=== PATIENT | female | born 1940 | race Caucasian/White ===

== ENCOUNTER 2023-06-15 09:40 | Emergency (ER) | payer MEDICARE ==
[2023-06-15 10:43] LABS: #Basophils 0.1 thou/uL (0.0-0.2); #Lymphocytes 0.4 thou/uL (1.20-3.40); #Monocytes 0.5 thou/uL (0.11-0.59); #Neutrophils 8.9 thou/uL (1.40-6.50); %Basophils 0.8 % (0.0-1.0); %Eosinophils 0.1 % (0.0-10.0); %Lymphocytes 4.2 % (21.0-51.0); %Monocytes 5.2 % (0.0-10.0); %Neutrophils 89.7 % (42.0-75.0); Hematocrit 42.7 % (36.0-47.0); Hemoglobin 14.1 g/dL (12.0-16.0); Mean Corpuscular HGB CONC 33.1 g/dL (32.0-36.0); Mean Corpuscular Hemoglobin 31.1 pg (27.0-31.0); Mean Corpuscular Volume 93.9 fl (78.0-98.0); Mean Platelet Volume 8.1 fL (7.4-10.4); Platelet Count 217 10x3/uL (130-400); RBC Distribution Width 12.2 % (11.5-14.5); Red Blood Cell (RBC) Count 4.55 mill/uL (4.20-5.40)
[2023-06-15] MEDS ORDERED: Ondansetron PF 4 MG/2 ML Vial ONE (10:43)
[2023-06-15] MEDS ORDERED: Sodium Chloride 0.9% 1,000 ML ONE ×2 (10:44→12:48)
[2023-06-15 10:52] LABS: ALT (SGPT) 25 U/L (8-55); AST (SGOT) 25 U/L (5-34); Albumin 4.8 g/dL (3.4-4.8); Alkaline Phosphatase 85 U/L (40-110); Anion Gap 19 mmol/L (10-20); BUN (Urea Nitrogen) 39 mg/dL (9.8-20.1); Bilirubin, Total 0.8 mg/dL (0.2-1.2); Calc. Creatinine Clearance 0 mL/min (70-130); Calcium 9.1 mg/dL (7.8-10.44); Carbon Dioxide 19 mmol/L (23-31); Chloride 106 mmol/L (98-107); Estimated GFR 20; Globulin 2.8 g/dL (2.4-3.5); Glucose 116 mg/dL (83-110); Lipase 16 U/L (8-78); Potassium 3.8 mmol/L (3.5-5.1); Protein, Total 7.6 g/dL (5.8-8.1); Sodium 140 mmol/L (136-145); Troponin I Less than 0.010 ng/mL (< 0.028)
[2023-06-15 12:18] LABS: Bilirubin Negative (Negative); Blood, Urine Trace (Negative); Clarity Slightly Cloudy (Clear); Glucose, Urine (Dipstick) Negative (Negative); Ketone, Urine Negative (Negative); Leukocyte Moderate (Negative); Nitrite Negative (Negative); Protein, Urine (Dipstick) 30 mg/dL (Neg-Trace); RBC/HPF 0-3 HPF (0-3); Specific Gravity, Urine 1.018 (1.002-1.036); Urobilinogen 0.2 mg/dL (Less than 2); pH, Urine 5.5 (5.0-9.0)
[2023-06-15 12:19] LABS: Bacteria/HPF 2+ HPF (None Seen); CAUTI Indications for Culture Dysuria,urgency,freq; WBC/HPF Greater than 50 HPF (0-3)
[2023-06-15 12:20] LABS: Urine Culture Reflex Yes Yes
[2023-06-15] MEDS ORDERED: cefTRIAXone (ROCEPHIN) 1 GM VIAL ONE (12:31)
== END 2023-06-15 15:48 | disposition short-term general hospital (02) ==
LOC: MADERS 09:40
DX: E86.0 Dehydration (principal); N39.0 Urinary tract infection, site not specified; N28.9 Disorder of kidney and ureter, unspecified
CPT/HCPCS: 71045; 74018; 74176; 80053; 81001; 83605; 83690; 84484; 85025; 87077; 87086; 93005; 96361; 96374; 96375; J0696; J2405; J7050

== ENCOUNTER 2024-08-14 19:53 | Emergency (ER) | payer MEDICARE ==
[2024-08-14] MEDS ORDERED: fentaNYL 50 mcg/mL 1 mL Vial ONE (20:32)
[2024-08-14 20:35] LABS: #Basophils 0.1 thou/uL (0.0-0.2); #Lymphocytes 0.8 thou/uL (1.20-3.40); #Monocytes 0.5 thou/uL (0.11-0.59); #Neutrophils 5.9 thou/uL (1.40-6.50); %Basophils 0.7 % (0.0-1.0); %Eosinophils 0.4 % (0.0-10.0); %Lymphocytes 11.2 % (21.0-51.0); %Monocytes 6.8 % (0.0-10.0); Hematocrit 41.3 % (36.0-47.0); Hemoglobin 13.2 g/dL (12.0-16.0); Mean Corpuscular HGB CONC 31.9 g/dL (32.0-36.0); Mean Corpuscular Hemoglobin 29.9 pg (27.0-31.0); Mean Corpuscular Volume 93.9 fl (78.0-98.0); Mean Platelet Volume 7.4 fL (7.4-10.4); Platelet Count 230 10x3/uL (130-400); RBC Distribution Width 12.1 % (11.5-14.5); White Blood Cell (WBC) Count 7.3 10x3/uL (4.8-10.8)
[2024-08-14 20:47] LABS: PTT 29.6 sec (22.9-36.1); Prothrombin Time 13.1 sec (12.0-14.7)
[2024-08-14 20:57] LABS: Troponin I Less than 0.010 ng/mL (< 0.028)
[2024-08-14 20:59] LABS: ALT (SGPT) 23 U/L (Less than 34); AST (SGOT) 27 U/L (11-34); Albumin 4.2 g/dL (3.1-4.5); Alkaline Phosphatase 89 U/L (40-110); Anion Gap 17 mmol/L (10-20); BUN (Urea Nitrogen) 27 mg/dL (9.8-20.1); Bilirubin, Total 0.4 mg/dL (0.3-1.2); Calc. Creatinine Clearance 0 mL/min (70-130); Calcium 9.3 mg/dL (7.8-10.44); Carbon Dioxide 19 mmol/L (23-31); Chloride 107 mmol/L (98-107); Estimated GFR 89; Globulin 3.2 g/dL (2.4-3.5); Glucose 116 mg/dL (83-110); Potassium 4.6 mmol/L (3.5-5.1); Protein, Total 7.4 g/dL (5.8-8.1); Sodium 138 mmol/L (136-145)
== END 2024-08-14 23:50 | disposition short-term general hospital (02) ==
LOC: MADERS 19:53
DX: S72.141A Displaced intertrochanteric fracture of right femur, initial encounter for closed fracture (principal); I10 Essential (primary) hypertension; Z79.899 Other long term (current) drug therapy; W19.XXXA Unspecified fall, initial encounter
CPT/HCPCS: 70450; 71045; 72125; 72131; 80053; 84484; 85025; 85610; 85730; 93005; 96374; J3010

== ENCOUNTER 2024-08-21 18:08 | Inpatient (IN) | payer MEDICARE ==
[2024-08-21] MEDS: Aspirin 81 mg Enteric Coated Tablet PO SCH (23:36)
[2024-08-21] MEDS: Acetaminophen 325 MG TAB PO SCH (23:36)
[2024-08-21] MEDS: Atorvastatin Calcium 10 MG TAB PO SCH (23:36)
[2024-08-21] MEDS: Melatonin 3 MG TAB PO SCH (23:36)
[2024-08-21] MEDS: QUEtiapine 25 MG TAB PO SCH (23:36)
[2024-08-22] MEDS: Aspirin 81 mg Enteric Coated Tablet PO SCH (07:33)
[2024-08-22] MEDS: Oxybutynin ER 5 MG TAB PO SCH (07:33)
[2024-08-22] MEDS: Lisinopril 5 MG TAB PO SCH (07:33)
[2024-08-22] MEDS: Donepezil HCl 10 MG TAB PO SCH (07:33)
[2024-08-22] MEDS: busPIRone HCl 5 MG TAB PO SCH ×2 (08:20→20:11)
[2024-08-22] MEDS: Betamethasone 0.1% Cream 15 GM TUBE TOP SCH ×2 (13:42→20:11)
[2024-08-22] MEDS: Melatonin 3 MG TAB PO SCH (20:11)
[2024-08-22] MEDS: Atorvastatin Calcium 10 MG TAB PO SCH (20:11)
[2024-08-22] MEDS: QUEtiapine 25 MG TAB PO SCH (20:11)
[2024-08-23] MEDS: Acetaminophen/Codeine 30-300mg Tablet PO PRN (20:30)
[2024-08-24] MEDS: busPIRone HCl 5 MG TAB PO SCH ×2 (17:09→20:16)
[2024-08-24] MEDS: QUEtiapine 25 MG TAB PO SCH (22:19)
[2024-08-25 05:24] LABS: Hematocrit 32.2 % (36.0-47.0); Hemoglobin 10.1 g/dL (12.0-16.0); Mean Corpuscular HGB CONC 31.3 g/dL (32.0-36.0); Mean Corpuscular Hemoglobin 29.6 pg (27.0-31.0); Mean Corpuscular Volume 94.7 fl (78.0-98.0); Mean Platelet Volume 6.4 fL (7.4-10.4); Platelet Count 365 10x3/uL (130-400); RBC Distribution Width 12.4 % (11.5-14.5)
[2024-08-25 05:31] LABS: Anion Gap 8 mmol/L (10-20); BUN (Urea Nitrogen) 18 mg/dL (9.8-20.1); Calc. Creatinine Clearance 70 mL/min (70-130); Calcium 9.1 mg/dL (7.8-10.44); Carbon Dioxide 26 mmol/L (23-31); Chloride 109 mmol/L (98-107); Estimated GFR 92; Glucose 103 mg/dL (83-110); Potassium 4.2 mmol/L (3.5-5.1); Sodium 139 mmol/L (136-145)
[2024-08-27] MEDS: Acetaminophen 325 MG TAB PO SCH (08:29)
[2024-08-27] MEDS: QUEtiapine 25 MG TAB PO SCH (23:39)
[2024-08-28 10:23] VITALS: BMI 25.6
[2024-08-31] MEDS: Senokot 8.6 MG TAB PO SCH (08:43)
[2024-09-01] MEDS ORDERED: Senokot 8.6 MG TAB PO PRN (07:59)
[2024-09-02] MEDS: Acetaminophen/Codeine 30-300mg Tablet PO PRN (07:55)
[2024-09-03 07:47] VITALS: BP 156/88; TEMP 97.9
== END 2024-09-03 07:45 | disposition home or self-care (01) | DRG 945 ==
LOC: MADMS 22:38
PROVIDERS: ADMIT Family Medicine; ATTEND Family Medicine
PROC: F07Z5ZZ Bed Mobility Treatment (ICD-10-PCS; principal; 2024-08-22)
PROC: F08Z0ZZ Bathing/Showering Techniques Treatment (ICD-10-PCS; 2024-08-22)
DX: R53.81 Other malaise (principal); S72.141A Displaced intertrochanteric fracture of right femur, initial encounter for closed fracture; F03.918 Unspecified dementia, unspecified severity, with other behavioral disturbance; I10 Essential (primary) hypertension; Z66 Do not resuscitate; E78.5 Hyperlipidemia, unspecified; F03.90 Unspecified dementia, unspecified severity, without behavioral disturbance, psychotic disturbance, mood disturbance, and anxiety; W18.30XA Fall on same level, unspecified, initial encounter; D64.9 Anemia, unspecified; R26.9 Unspecified abnormalities of gait and mobility; N32.81 Overactive bladder; Z98.890 Other specified postprocedural states; Z79.899 Other long term (current) drug therapy
CPT/HCPCS: 36415; 80048; 85027